=== PATIENT | female | born 1935 | race Caucasian/White ===

== ENCOUNTER 2021-04-12 14:47 | Inpatient (IN) | payer OTHER ==
[2021-04-12 15:34] VITALS: BMI 35.2
[2021-04-12 17:28] LABS: BASO % 0.4 % (0-2.0); EOS % 12.2 % (0-4.5); HEMATOCRIT 35.9 % (32.4-45.2); HEMOGLOBIN 11.9 GM/dL (10.7-15.3); LYMPH % 24.2 % (8-40); MCH 32.6 pg (25.7-33.7); MCHC 33.1 g/dl (32.0-36.0); MEAN CELL VOLUME 98.4 fl (80-96); MEAN PLT VOLUME 8.1 fl (7.5-11.1); MONO % 7.7 % (3.8-10.2); NEUT % 55.5 % (42.8-82.8); PLATELET COUNT 276 10^3/uL (134-434); RBC 3.65 M/mm3 (3.60-5.2); RDW 13.6 % (11.6-15.6); WHITE BLOOD COUNT 7.2 K/mm3 (4.0-10.0)
[2021-04-12 17:40] LABS: CHLORIDE 104 mmol/L (98-107); SODIUM 140 mmol/L (136-145)
[2021-04-12 17:42] LABS: CALCIUM 9.3 mg/dL (8.5-10.1)
[2021-04-12 17:43] LABS: ALBUMIN 3.2 g/dl (3.4-5.0); ANION GAP 5 MMOL/L (8-16); BLOOD UREA NITROGEN 30.7 mg/dL (7-18); CO2 30 mmol/L (21-32); GLUCOSE,RANDOM 98 mg/dL (74-106); MAGNESIUM 2.4 mg/dL (1.8-2.4)
[2021-04-12 17:46] LABS: CREATININE 0.8 mg/dL (0.55-1.3); SGOT/AST 16 U/L (15-37); SGPT/ALT 15 U/L (13-61)
[2021-04-12 17:47] LABS: BILIRUBIN,TOTAL 0.4 mg/dL (0.2-1); TOT PROT 7.3 g/dl (6.4-8.2)
[2021-04-12 17:48] LABS: ALK PHOS 87 U/L (45-117)
[2021-04-12 17:51] LABS: N-TERMINAL BNP 1373.5 pg/ml (5-450)
[2021-04-12] MEDS ORDERED: FUROSEMIDE 40 MG/4 ML INJECTABLE VIAL IVPUSH ONE (18:00)
[2021-04-12 18:02] LABS: INR 0.98 (0.83-1.09); PROTHROMBIN TIME (PATIENT) 11.5 SEC (9.7-13.0)
[2021-04-12 18:04] LABS: ACTIVATED PTT 29.1 SECONDS (25.2-36.5)
[2021-04-12] MEDS ORDERED: FUROSEMIDE 40 MG/4 ML INJECTABLE VIAL ONE (18:17)
[2021-04-12 18:42] LABS: EPI CELLS 5 /uL (0-25.1); HYALINE CASTS 0 /uL (0-3.1); PH,URINE 8.5 (5.0-8.0); URINE APPEARANCE CLEAR; URINE BACTERIA 15 /uL (0-1359); URINE BILIRUBIN NEGATIVE (NEGATIVE); URINE COLOR YELLOW; URINE GLUCOSE (UA) NEGATIVE (NEGATIVE); URINE KETONE NEGATIVE (NEGATIVE); URINE LEUK ESTERASE 1+ (NEGATIVE); URINE NITRITE NEGATIVE (NEGATIVE); URINE PROTEIN NEGATIVE (NEGATIVE); URINE RBC 15 /uL (0-23.9); URINE UROBILINOGEN 0.2 mg/dL (0.2-1.0); URINE WBC 19 /uL (0-25.8)
[2021-04-13] MEDS: CLINDAMYCIN IVPB 300 MG in DEXTROSE 5%-WATER - 48 ML IVPB SCH ×2 (04:35→12:46)
[2021-04-13] MEDS ORDERED: FUROSEMIDE 20 MG TABLET (FP) PO SCH (06:00)
[2021-04-13 09:19] LABS: BASO % 0.6 % (0-2.0); EOS % 12.3 % (0-4.5); HEMATOCRIT 34.9 % (32.4-45.2); LYMPH % 18.5 % (8-40); MCH 33.9 pg (25.7-33.7); MCHC 34.3 g/dl (32.0-36.0); MEAN CELL VOLUME 98.9 fl (80-96); MEAN PLT VOLUME 8.6 fl (7.5-11.1); NEUT % 60.6 % (42.8-82.8); PLATELET COUNT 263 10^3/uL (134-434); RBC 3.53 M/mm3 (3.60-5.2); RDW 13.6 % (11.6-15.6); WHITE BLOOD COUNT 6.2 K/mm3 (4.0-10.0)
[2021-04-13 09:33] LABS: CALCIUM 9.2 mg/dL (8.5-10.1); MAGNESIUM 2.2 mg/dL (1.8-2.4)
[2021-04-13 09:35] LABS: BLOOD UREA NITROGEN 27.4 mg/dL (7-18)
[2021-04-13 09:36] LABS: CREATININE 0.7 mg/dL (0.55-1.3)
[2021-04-13 09:38] LABS: BILIRUBIN,TOTAL 0.5 mg/dL (0.2-1); PHOSPHOROUS 3.7 mg/dL (2.5-4.9); TOT PROT 6.8 g/dl (6.4-8.2)
[2021-04-13] MEDS: METOPROLOL TARTRATE 25 MG TABLET (FP) PO SCH ×2 (09:45→21:03)
[2021-04-13] MEDS: APIXABAN 5 MG TABLET PO SCH ×2 (09:45→21:03)
[2021-04-13] MEDS ORDERED: FLU VACC QS2021-22(6MOS UP)/PF 60 MCG/0.5 ML SYRINGE IM ONE (10:00)
[2021-04-13] MEDS ORDERED: PNEUMOC 13-VAL CONJ-DIP CRM/PF 0.5 ML DISP.SYRIN IM ONE ×2 (10:00→11:00)
[2021-04-13] MEDS ORDERED: PT OWN MED DRAWER 7, Y5N ONE (10:45)
[2021-04-13] MEDS: CLINDAMYCIN 300 MG PREMIX IVPB 300 MG/50 ML BAG IVPB SCH ×3 (13:23→20:59)
[2021-04-13] MEDS: FUROSEMIDE 40 MG/4 ML INJECTABLE VIAL IVPUSH SCH (13:26)
[2021-04-13] MEDS ORDERED: ALBUTEROL SO4 HFA INHALER IH PRN (16:32)
[2021-04-13] MEDS: ROSUVASTATIN CA 20 MG TABLET PO SCH (21:00)
[2021-04-14] MEDS: CLINDAMYCIN 300 MG PREMIX IVPB 300 MG/50 ML BAG IVPB SCH ×4 (02:29→20:40)
[2021-04-14] MEDS: LEVOTHYROXINE NA 25 MCG TABLET (FP) PO SCH (06:06)
[2021-04-14 07:03] LABS: HEMATOCRIT 36.1 % (32.4-45.2); HEMOGLOBIN 12.3 GM/dL (10.7-15.3); MCH 33.7 pg (25.7-33.7); MEAN PLT VOLUME 8.3 fl (7.5-11.1); PLATELET COUNT 255 10^3/uL (134-434); RBC 3.64 M/mm3 (3.60-5.2); RDW 13.6 % (11.6-15.6); WHITE BLOOD COUNT 6.4 K/mm3 (4.0-10.0)
[2021-04-14 07:58] LABS: ALBUMIN 2.8 g/dl (3.4-5.0); CALCIUM 8.9 mg/dL (8.5-10.1)
[2021-04-14 07:59] LABS: BLOOD UREA NITROGEN 29.7 mg/dL (7-18); MAGNESIUM 2.3 mg/dL (1.8-2.4); PHOSPHOROUS 3.9 mg/dL (2.5-4.9)
[2021-04-14 08:01] LABS: BILIRUBIN,TOTAL 0.5 mg/dL (0.2-1); TOT PROT 6.5 g/dl (6.4-8.2)
[2021-04-14 08:02] LABS: CREATININE 0.8 mg/dL (0.55-1.3)
[2021-04-14] MEDS ORDERED: PT OWN MED DRAWER 7, Y5N ONE (08:03)
[2021-04-14] MEDS ORDERED: cefTRIAXone SODIUM 1 GM VIAL ONE ×2 (09:13→09:28)
[2021-04-14] MEDS ORDERED: DEXTROSE 5%-WATER - 50 ML IVPB ONE ×2 (09:13→09:28)
[2021-04-14] MEDS: CEFTRIAXONE 1 GM in DEXTROSE 5%-WATER - 50 ML IVPB SCH (09:25)
[2021-04-14] MEDS: FUROSEMIDE 40 MG/4 ML INJECTABLE VIAL IVPUSH SCH ×2 (09:30→14:49)
[2021-04-14] MEDS: LOSARTAN POTASSIUM 50 MG TABLET PO SCH (09:31)
[2021-04-14] MEDS: DULoxetine HCL 30 MG CAPSULE.DR PO SCH (09:31)
[2021-04-14] MEDS: amLODIPine BESYLATE 5 MG TABLET (FP) PO SCH (09:31)
[2021-04-14] MEDS: METOPROLOL TARTRATE 25 MG TABLET (FP) PO SCH ×2 (09:31→21:12)
[2021-04-14] MEDS: APIXABAN 5 MG TABLET PO SCH ×2 (09:31→21:09)
[2021-04-14] MEDS: ROSUVASTATIN CA 20 MG TABLET PO SCH (21:09)
[2021-04-15] MEDS: CLINDAMYCIN 300 MG PREMIX IVPB 300 MG/50 ML BAG IVPB SCH ×2 (02:59→09:00)
[2021-04-15] MEDS: LEVOTHYROXINE NA 25 MCG TABLET (FP) PO SCH (06:08)
[2021-04-15] MEDS: FUROSEMIDE 40 MG/4 ML INJECTABLE VIAL IVPUSH SCH ×2 (06:08→13:28)
[2021-04-15 07:06] LABS: BASO % 0.6 % (0-2.0); EOS % 9.1 % (0-4.5); HEMATOCRIT 34.9 % (32.4-45.2); HEMOGLOBIN 11.8 GM/dL (10.7-15.3); LYMPH % 19.1 % (8-40); MCH 32.7 pg (25.7-33.7); MCHC 33.9 g/dl (32.0-36.0); MEAN CELL VOLUME 96.4 fl (80-96); MEAN PLT VOLUME 8.1 fl (7.5-11.1); MONO % 8.3 % (3.8-10.2); NEUT % 62.9 % (42.8-82.8); PLATELET COUNT 252 10^3/uL (134-434); RBC 3.62 M/mm3 (3.60-5.2); RDW 13.2 % (11.6-15.6); WHITE BLOOD COUNT 6.9 K/mm3 (4.0-10.0)
[2021-04-15 07:32] LABS: ALBUMIN 2.9 g/dl (3.4-5.0); BLOOD UREA NITROGEN 32.8 mg/dL (7-18); CALCIUM 8.5 mg/dL (8.5-10.1)
[2021-04-15 07:33] LABS: MAGNESIUM 2.3 mg/dL (1.8-2.4)
[2021-04-15 07:35] LABS: CREATININE 0.9 mg/dL (0.55-1.3); PHOSPHOROUS 3.7 mg/dL (2.5-4.9)
[2021-04-15 07:36] LABS: BILIRUBIN,TOTAL 0.5 mg/dL (0.2-1); TOT PROT 6.8 g/dl (6.4-8.2)
[2021-04-15] MEDS ORDERED: PT OWN MED DRAWER 7, Y5N ONE ×2 (08:14→13:06)
[2021-04-15] MEDS ORDERED: DEXTROSE 5%-WATER - 50 ML IVPB ONE (08:15)
[2021-04-15] MEDS ORDERED: cefTRIAXone SODIUM 1 GM VIAL ONE (08:15)
[2021-04-15] MEDS: CEFTRIAXONE 1 GM in DEXTROSE 5%-WATER - 50 ML IVPB SCH (10:28)
[2021-04-15] MEDS: APIXABAN 5 MG TABLET PO SCH (10:30)
[2021-04-15] MEDS: amLODIPine BESYLATE 5 MG TABLET (FP) PO SCH (10:31)
[2021-04-15] MEDS: METOPROLOL TARTRATE 25 MG TABLET (FP) PO SCH (10:31)
[2021-04-15] MEDS: LOSARTAN POTASSIUM 50 MG TABLET PO SCH (10:33)
[2021-04-15] MEDS: DULoxetine HCL 30 MG CAPSULE.DR PO SCH (10:33)
[2021-04-15 14:57] VITALS: BP 111/49; PULSE 67; TEMP 98.6
== END 2021-04-15 17:49 | disposition home or self-care (01) | DRG 291 ==
LOC: JER 14:47 → JERBED 17:55 → J4W 04-13 03:32
PROVIDERS: ATTEND Internal Medicine
DX: I11.0 Hypertensive heart disease with heart failure (principal); I50.33 Acute on chronic diastolic (congestive) heart failure; L03.116 Cellulitis of left lower limb; N39.0 Urinary tract infection, site not specified; E78.5 Hyperlipidemia, unspecified; E03.9 Hypothyroidism, unspecified; I50.9 Heart failure, unspecified; I48.91 Unspecified atrial fibrillation
CPT/HCPCS: 36415; 71045-TC-FY; 80053; 81003; 82550; 82962; 83735; 83880; 84100; 84443; 84484; 85025; 85027; 85610; 85730; 86850; 86870; 86900; 86901; 86902; 87086; 90670; 90686; 93005; 93010; 93306-TC; 93970-TC; 94761; 97116-GP; 97161-GP; 99285-25; C9803; G0008; U0003; U0005

== ENCOUNTER 2023-04-04 14:45 | Inpatient (IN) | payer OTHER ==
[2023-04-04 14:50] VITALS: BMI 33.2
[2023-04-04] MEDS ORDERED: VANCOMYCIN/WATER 1250 MG 1,250 MG/250 ML BAG IVPB ONE ×2 (16:25→17:12)
[2023-04-04] MEDS ORDERED: PIPERACILLIN/TAZOB 3.375 GM 3.375 GM in DEXTROSE 5%-WATER - 50 ML IVPB ONE (16:26)
[2023-04-04] MEDS ORDERED: ACETAMINOPHEN 1000 MG/100 ML BAG IVPB ONE ×2 (17:07→23:44)
[2023-04-04] MEDS ORDERED: ACETAMINOPHEN INJECTION 100 ML IVPB ONE ×2 (17:11→23:46)
[2023-04-04] MEDS ORDERED: PIPERACILLIN/TAZOB 3.375 GM 3.375 GM/50 ML BAG IVPB ONE (17:12)
[2023-04-04 18:05] LABS: HEMATOCRIT 36.6 % (32.4-45.2); HEMOGLOBIN 11.8 GM/dL (10.7-15.3); MCH 31.2 pg (25.7-33.7); MCHC 32.3 g/dl (32.0-36.0); MEAN CELL VOLUME 96.5 fl (80-96); PLATELET COUNT 284 10^3/uL (134-434); RBC 3.79 M/mm3 (3.60-5.2); RDW 16.2 % (11.6-15.6); WHITE BLOOD COUNT 9.3 K/mm3 (4.0-10.0)
[2023-04-04 18:20] LABS: POTASSIUM 4.6 mmol/L (3.5-5.1)
[2023-04-04 18:22] LABS: CALCIUM 9.2 mg/dL (8.5-10.1)
[2023-04-04 18:23] LABS: ALBUMIN 3.2 g/dl (3.4-5.0); BLOOD UREA NITROGEN 29.4 mg/dL (7-18)
[2023-04-04 18:26] LABS: CREATININE 0.9 mg/dL (0.55-1.3)
[2023-04-04 18:27] LABS: BILIRUBIN,TOTAL 0.3 mg/dL (0.2-1); TOT PROT 7.6 g/dl (6.4-8.2)
[2023-04-04] MEDS ORDERED: FUROSEMIDE 40 MG/4 ML INJECTABLE VIAL IVPUSH ONE (18:38)
[2023-04-04 18:44] LABS: ERYTHROCYTE SEDIMENTATION RATE 77 mm/hr (0-30)
[2023-04-04] MEDS ORDERED: FUROSEMIDE 40 MG/4 ML INJECTABLE VIAL ONE (18:54)
[2023-04-05] MEDS ORDERED: PIPERACILLIN/TAZOB 3.375 GM 3.375 GM/50 ML BAG IVPB ONE ×2 (02:06→10:14)
[2023-04-05] MEDS ORDERED: VANCOMYCIN/WATER 1250 MG 1,250 MG/250 ML BAG IVPB ONE (02:06)
[2023-04-05] MEDS: PIPERACILLIN/TAZOB 3.375 GM 3.375 GM in DEXTROSE 5%-WATER - 50 ML IVPB SCH ×2 (02:30→11:00)
[2023-04-05 03:03] LABS: EPI CELLS 6 /uL (0-25.1); HYALINE CASTS 0 /uL (0-3.1); URINE APPEARANCE CLEAR; URINE BACTERIA 1113 /uL (0-1359); URINE BILIRUBIN NEGATIVE (NEGATIVE); URINE COLOR YELLOW; URINE GLUCOSE (UA) NEGATIVE (NEGATIVE); URINE KETONE NEGATIVE (NEGATIVE); URINE LEUK ESTERASE 2+ (NEGATIVE); URINE NITRITE NEGATIVE (NEGATIVE); URINE PROTEIN NEGATIVE (NEGATIVE); URINE RBC 23 /uL (0-23.9); URINE UROBILINOGEN 0.2 mg/dL (0.2-1.0); URINE WBC 10 /uL (0-25.8)
[2023-04-05] MEDS ORDERED: ACETAMINOPHEN 325 MG TABLET (FP) PO PRN (04:41)
[2023-04-05] MEDS ORDERED: FUROSEMIDE 40 MG TABLET (FP) ONE (04:50)
[2023-04-05] MEDS ORDERED: morphine CARPU-JECT 2 MG/1 ML DISP.SYRIN IM ONE (05:05)
[2023-04-05] MEDS ORDERED: ACETAMINOPHEN 325 MG TABLET (FP) PO ONE (05:29)
[2023-04-05] MEDS ORDERED: FUROSEMIDE 40 MG TABLET (FP) PO SCH (06:00)
[2023-04-05 07:40] LABS: BASO % 0.7 % (0-2.0); EOS % 18.4 % (0-4.5); HEMATOCRIT 34.7 % (32.4-45.2); HEMOGLOBIN 11.1 GM/dL (10.7-15.3); LYMPH % 15.7 % (8-40); MCH 31.6 pg (25.7-33.7); MEAN CELL VOLUME 98.6 fl (80-96); MEAN PLT VOLUME 8.2 fl (7.5-11.1); MONO % 6.3 % (3.8-10.2); NEUT % 58.9 % (42.8-82.8); PLATELET COUNT 267 10^3/uL (134-434); RBC 3.52 M/mm3 (3.60-5.2); RDW 15.7 % (11.6-15.6); WHITE BLOOD COUNT 8.4 K/mm3 (4.0-10.0)
[2023-04-05 08:00] LABS: POTASSIUM 4.1 mmol/L (3.5-5.1)
[2023-04-05 08:11] LABS: BLOOD UREA NITROGEN 27.4 mg/dL (7-18)
[2023-04-05 08:12] LABS: MAGNESIUM 1.8 mg/dL (1.8-2.4)
[2023-04-05 08:13] LABS: BILIRUBIN,TOTAL 0.6 mg/dL (0.2-1); TOT PROT 6.9 g/dl (6.4-8.2)
[2023-04-05 08:14] LABS: PHOSPHOROUS 3.8 mg/dL (2.5-4.9)
[2023-04-05 08:26] LABS: CREATININE 0.9 mg/dL (0.55-1.3)
[2023-04-05] MEDS: ENOXAPARIN NA (PORCINE) 40 MG/0.4 ML DISP.SYRIN SQ SCH (11:53)
[2023-04-05] MEDS ORDERED: FUROSEMIDE 40 MG/4 ML INJECTABLE VIAL ONE (13:38)
[2023-04-05] MEDS: FUROSEMIDE 40 MG/4 ML INJECTABLE VIAL IVPUSH SCH (13:47)
[2023-04-05] MEDS ORDERED: CEFAZOLIN SODIUM 2 GM VIAL IVPB SCH (14:00)
[2023-04-05] MEDS ORDERED: ACETAMINOPHEN 1000 MG/100 ML BAG IVPB ONE (17:30)
[2023-04-05] MEDS ORDERED: ACETAMINOPHEN INJECTION 100 ML IVPB ONE (17:49)
[2023-04-05] MEDS ORDERED: CEFAZOLIN SODIUM 2 GM VIAL ONE (17:50)
[2023-04-05] MEDS ORDERED: VANCOMYCIN/WATER 1250 MG 1,250 MG/250 ML BAG IVPB SCH (19:00)
[2023-04-05] MEDS: CEFAZOLIN SODIUM 2 GM in DEXTROSE 5%-WATER 100 ML IVPB SCH (19:25)
[2023-04-05] MEDS ORDERED: ACETAMINOPHEN 325 MG TABLET (FP) ONE (20:48)
[2023-04-06] MEDS: CEFAZOLIN SODIUM 2 GM in DEXTROSE 5%-WATER 100 ML IVPB SCH ×3 (01:58→17:34)
[2023-04-06] MEDS ORDERED: PIPERACILLIN/TAZOB 3.375 GM 3.375 GM in DEXTROSE 5%-WATER - 50 ML IVPB SCH (02:00)
[2023-04-06] MEDS: FUROSEMIDE 40 MG/4 ML INJECTABLE VIAL IVPUSH SCH ×2 (05:33→13:18)
[2023-04-06 07:34] LABS: BASO % 0.7 % (0-2.0); EOS % 17.5 % (0-4.5); HEMATOCRIT 35.1 % (32.4-45.2); HEMOGLOBIN 11.2 GM/dL (10.7-15.3); LYMPH % 14.9 % (8-40); MCH 31.7 pg (25.7-33.7); MEAN CELL VOLUME 98.8 fl (80-96); MEAN PLT VOLUME 8.2 fl (7.5-11.1); MONO % 7.2 % (3.8-10.2); NEUT % 59.7 % (42.8-82.8); PLATELET COUNT 282 10^3/uL (134-434); RBC 3.55 M/mm3 (3.60-5.2); RDW 15.5 % (11.6-15.6); WHITE BLOOD COUNT 8.4 K/mm3 (4.0-10.0)
[2023-04-06 07:35] LABS: POTASSIUM 4.4 mmol/L (3.5-5.1)
[2023-04-06 07:37] LABS: BLOOD UREA NITROGEN 28.6 mg/dL (7-18); CALCIUM 8.6 mg/dL (8.5-10.1); MAGNESIUM 1.9 mg/dL (1.8-2.4)
[2023-04-06 07:41] LABS: CREATININE 0.9 mg/dL (0.55-1.3)
[2023-04-06] MEDS: ASPIRIN 81 MG CHEWABLE TABLETS PO SCH (09:28)
[2023-04-06] MEDS: metoPROLOL SUCCINATE 25 MG TAB.SR.24H (FP) PO SCH (09:28)
[2023-04-06] MEDS: ENOXAPARIN NA (PORCINE) 40 MG/0.4 ML DISP.SYRIN SQ SCH (09:28)
[2023-04-06] MEDS ORDERED: HYDROCORTISONE 1% TOPICAL CREAM 30 GM TUBE TP PRN (16:06)
[2023-04-06] MEDS ORDERED: VANCOMYCIN/WATER 1250 MG 1,250 MG/250 ML BAG IVPB SCH (19:00)
[2023-04-07] MEDS: CEFAZOLIN SODIUM 2 GM in DEXTROSE 5%-WATER 100 ML IVPB SCH ×3 (02:28→17:45)
[2023-04-07] MEDS: FUROSEMIDE 40 MG/4 ML INJECTABLE VIAL IVPUSH SCH ×2 (05:33→14:08)
[2023-04-07 09:43] LABS: HEMATOCRIT 39.1 % (32.4-45.2); HEMOGLOBIN 12.7 GM/dL (10.7-15.3); MCH 31.6 pg (25.7-33.7); MCHC 32.4 g/dl (32.0-36.0); MEAN CELL VOLUME 97.8 fl (80-96); MEAN PLT VOLUME 7.9 fl (7.5-11.1); PLATELET COUNT 319 10^3/uL (134-434); RDW 15.5 % (11.6-15.6); WHITE BLOOD COUNT 9.2 K/mm3 (4.0-10.0)
[2023-04-07] MEDS: ENOXAPARIN NA (PORCINE) 40 MG/0.4 ML DISP.SYRIN SQ SCH (10:05)
[2023-04-07] MEDS: ASPIRIN 81 MG CHEWABLE TABLETS PO SCH (10:05)
[2023-04-07] MEDS: metoPROLOL SUCCINATE 25 MG TAB.SR.24H (FP) PO SCH (10:05)
[2023-04-07 10:11] LABS: POTASSIUM 3.9 mmol/L (3.5-5.1)
[2023-04-07] MEDS: ACETAMINOPHEN 1000 MG/100 ML BAG IVPB PRN (10:13)
[2023-04-07 10:16] LABS: CALCIUM 9.2 mg/dL (8.5-10.1)
[2023-04-07 10:17] LABS: ALBUMIN 2.9 g/dl (3.4-5.0); BLOOD UREA NITROGEN 26.9 mg/dL (7-18)
[2023-04-07 10:21] LABS: BILIRUBIN,TOTAL 0.5 mg/dL (0.2-1); TOT PROT 7.4 g/dl (6.4-8.2)
[2023-04-07] MEDS: TORSEMIDE 20 MG TABLET (FP) PO SCH (14:09)
[2023-04-08] MEDS: CEFAZOLIN SODIUM 2 GM in DEXTROSE 5%-WATER 100 ML IVPB SCH ×3 (01:56→17:07)
[2023-04-08] MEDS: TORSEMIDE 20 MG TABLET (FP) PO SCH ×2 (06:20→13:37)
[2023-04-08 08:25] LABS: HEMATOCRIT 38.4 % (32.4-45.2); HEMOGLOBIN 12.9 GM/dL (10.7-15.3); MCHC 33.5 g/dl (32.0-36.0); MEAN CELL VOLUME 95.6 fl (80-96); MEAN PLT VOLUME 7.6 fl (7.5-11.1); PLATELET COUNT 318 10^3/uL (134-434); RBC 4.02 M/mm3 (3.60-5.2); RDW 15.7 % (11.6-15.6); WHITE BLOOD COUNT 8.2 K/mm3 (4.0-10.0)
[2023-04-08 08:42] LABS: POTASSIUM 3.8 mmol/L (3.5-5.1)
[2023-04-08 08:44] LABS: CALCIUM 9.1 mg/dL (8.5-10.1)
[2023-04-08 08:45] LABS: BLOOD UREA NITROGEN 36.2 mg/dL (7-18)
[2023-04-08 08:49] LABS: CREATININE 1.1 mg/dL (0.55-1.3)
[2023-04-08] MEDS: ENOXAPARIN NA (PORCINE) 40 MG/0.4 ML DISP.SYRIN SQ SCH (09:09)
[2023-04-08] MEDS: ASPIRIN 81 MG CHEWABLE TABLETS PO SCH (09:09)
[2023-04-08] MEDS: metoPROLOL SUCCINATE 25 MG TAB.SR.24H (FP) PO SCH (09:09)
[2023-04-08 15:17] VITALS: RESP 18
[2023-04-08] MEDS: ACETAMINOPHEN 1000 MG/100 ML BAG IVPB PRN (17:03)
[2023-04-09] MEDS: CEFAZOLIN SODIUM 2 GM in DEXTROSE 5%-WATER 100 ML IVPB SCH ×3 (01:13→17:24)
[2023-04-09] MEDS: TORSEMIDE 20 MG TABLET (FP) PO SCH ×2 (05:45→14:25)
[2023-04-09] MEDS: metoPROLOL SUCCINATE 25 MG TAB.SR.24H (FP) PO SCH (09:13)
[2023-04-09] MEDS: ASPIRIN 81 MG CHEWABLE TABLETS PO SCH (09:13)
[2023-04-09] MEDS: ENOXAPARIN NA (PORCINE) 40 MG/0.4 ML DISP.SYRIN SQ SCH (09:13)
[2023-04-09 18:09] VITALS: BP 100/55; PULSE 77; TEMP 97.7
== END 2023-04-09 20:30 | disposition home or self-care (01) | DRG 291 ==
LOC: JER 14:45 → JERBED 22:05 → OBSVTOIN 23:18 → J4S 04-05 23:17
PROVIDERS: ADMIT Internal Medicine; ATTEND Internal Medicine
DX: I11.0 Hypertensive heart disease with heart failure (principal); I50.33 Acute on chronic diastolic (congestive) heart failure; L97.209 Non-pressure chronic ulcer of unspecified calf with unspecified severity; L03.115 Cellulitis of right lower limb; L03.116 Cellulitis of left lower limb; L97.819 Non-pressure chronic ulcer of other part of right lower leg with unspecified severity; E03.9 Hypothyroidism, unspecified; I48.91 Unspecified atrial fibrillation; E78.5 Hyperlipidemia, unspecified; I87.2 Venous insufficiency (chronic) (peripheral)
CPT/HCPCS: 36415; 71045-TC-FY; 73590-TC-LT-FY; 73590-TC-RT-FY; 80048; 80053; 80061; 81003; 83735; 83880; 84100; 84443; 84484; 85025; 85027; 85651; 86140; 86682; 87040; 87086; 93005; 93010; 97116-GP; 97161-GP; 99285-25; G0378